=== PATIENT | male | born 1995 | race American Indian/Alaskan Native ===

== ENCOUNTER 2016-09-30 12:18 | Emergency (ER) | payer SELFPAY ==
[2016-09-30 13:03] VITALS: BP 119/77
[2016-09-30] MEDS ORDERED: XYLOCAINE 1% MPF 5 mL INFILTRATI ONE (14:43)
[2016-09-30] MEDS ORDERED: ROCEPHIN IM ONE (14:43)
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
[2016-09-30] MEDS ORDERED: ZITHROMAX PO ONE (14:44)
[2016-09-30 15:13] LABS: Bacteria,Urine 1+ /HPF (Negative); Bilirubin,Urine NEG (Negative); Blood,Urine NEG (Negative); Ketones,Urine NEG (Negative); Leukocyte Esterase,Urine NEG (Negative); Mucus,Urine 3+ /HPF; Nitrite,Urine NEG (Negative); Protein,Urine <15 mg/dL mg/dL (Negative); Urobilinogen,Urine < 2.0 mg/dL (<2.0)
== END 2016-09-30 15:20 | disposition home or self-care (01) ==
LOC: ED 12:18
DX: N34.2 Other urethritis (principal); Z20.2 Contact with and (suspected) exposure to infections with a predominantly sexual mode of transmission; J45.909 Unspecified asthma, uncomplicated; R53.1 Weakness
CPT/HCPCS: 81001; 87086; 87591; 96372; 99283; J0696

== ENCOUNTER 2017-11-28 15:46 | Emergency (ER) | payer MEDICAID ==
[2017-11-28 15:59] VITALS: BP 132/73
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
[2017-11-28 19:04] LABS: Bilirubin,Urine NEG (Negative); Blood,Urine NEG (Negative); Color,Urine Amber (Yellow); Mucus,Urine 3+ /HPF
[2017-11-28] MEDS ORDERED: XYLOCAINE 1% MPF 5 mL INFILTRATI ONE (19:58)
[2017-11-28] MEDS ORDERED: ZITHROMAX PO ONE (19:58)
[2017-11-28] MEDS ORDERED: ROCEPHIN IM ONE (19:58)
== END 2017-11-28 20:29 | disposition home or self-care (01) ==
LOC: ED 15:46
DX: Z20.2 Contact with and (suspected) exposure to infections with a predominantly sexual mode of transmission (principal); J45.909 Unspecified asthma, uncomplicated; F12.10 Cannabis abuse, uncomplicated
CPT/HCPCS: 81001; 96372; 99283; J0696

== ENCOUNTER 2017-12-15 09:40 | Emergency (ER) | payer MEDICAID ==
[2017-12-15 10:00] VITALS: BP 112/86
--- NOTE | 2017-12-15 10:30 | Emergency Department Report ---
Chief Complaint: Urogenital-Male Stated Complaint: STD TESTING Time Seen by Provider: 12/15/17 10:23 - HPI History of Present Illness: Patient is a 22-year-old -[place] male who states he has a new sexual partner was tested for HIV. Patient has no symptoms at this time. - ROS Review of Systems: All other systems are reviewed and are negative - Exam Vital Signs: Vital Signs 12/15/17 09:58 Temperature 98.6 F Pulse Rate 63 Respiratory 16 Rate Blood Pressure 112/86 O2 Sat by Pulse 97 Oximetry Physical Exam: Brief physical exam patient is alert and oriented in no acute distress. MSE screening note: Focused history and physical exam performed. Due to findings the following was ordered: ED Medical Decision Making - Medical Decision Making I discussed with the patient that emergency department is not appropriate place to get HIV testing. Patient was given information for the health department and be discharged home has not medical emergency ED Disposition for MSE Clinical Impression: Concern about STD in male without diagnosis Disposition: - MED SCREENING EXAM-LEFT Condition: Stable Referrals: PRIMARY CARE, [Primary Care Provider] - 3-5 Days
== END 2017-12-15 10:30 | disposition left against medical advice (07) ==
LOC: ED 09:40
DX: Z11.3 Encounter for screening for infections with a predominantly sexual mode of transmission (principal); Z53.21 Procedure and treatment not carried out due to patient leaving prior to being seen by health care provider

== ENCOUNTER 2018-06-12 14:48 | Emergency (ER) | payer MEDICAID, OTHER ==
[2018-06-12] MEDS ORDERED: XYLOCAINE 1% MPF 5 mL INFILTRATI ONE (15:27)
[2018-06-12] MEDS ORDERED: VIBRAMYCIN PO ONE (15:27)
[2018-06-12] MEDS ORDERED: ZOFRAN ODT PO ONE (15:27)
[2018-06-12] MEDS ORDERED: ROCEPHIN IM ONE (15:27)
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
[2018-06-12 15:51] VITALS: BP 127/74
== END 2018-06-12 15:50 | disposition home or self-care (01) ==
LOC: ED 14:48
DX: N39.0 Urinary tract infection, site not specified (principal); J45.909 Unspecified asthma, uncomplicated; F17.200 Nicotine dependence, unspecified, uncomplicated; F12.10 Cannabis abuse, uncomplicated
CPT/HCPCS: 96372; 99282; J0696; Q0162